=== PATIENT | male | born 1975 | race Caucasian/White ===

== ENCOUNTER 2019-11-01 00:36 | Inpatient (IN) | payer MEDICARE ==
[2019-11-01] MEDS ORDERED: cloNIDine 0.1 MG TAB ONE (01:08)
[2019-11-01] MEDS ORDERED: hydrALAZINE 20 MG/ML VIAL ONE (01:43)
--- NOTE | 2019-11-01 02:25 | PDOC.FPRHP ---
- History of Present Illness Chief Complaint: Fatigue and dizziness History of Present Illness: Mr. Christian is a 43yoM who presents as transfer from [place] for evaluation of severe hypertension and profound dizziness and fatigue. He states that he has a history of MS. His symptoms started last night at 8pm of increasing dizziness. He states that he feels that everything is spinning, it is not worsened by position. He denies nausea and vomiting. He states his stomach is a little upset. His mother has the flu and strep. He lives with his mom. He usually uses a cane , he was not able to walk today due to the dizziness. He has a history of vertigo and double vision with his MS. His last flare was 2 weeks ago and he states he did not go to the doctor and was managing it himself. He has been taking Ocrevis, infusion q 6 months however he missed his infusion in September. Just switched to Dr. Ramos ED Course: 1g Methylprednisolone - Allergies/Adverse Reactions Allergies Allergy/AdvReac Type Severity Reaction Status Date / Time No Known Drug Allergies Allergy Verified 11/01/19 04:25 - Home Medications Medication Instructions Recorded Confirmed Type Carvedilol [Coreg] 25 mg PO BID 11/01/19 11/01/[address] [Depakote] 500 mg PO BID 11/01/19 11/01/19 History Lisinopril 20 mg PO BID 11/01/19 11/01/19 History cloNIDine [Catapres] 0.1 mg PO BID 11/01/19 11/01/19 History - History PMHx: HTN - clonidine, carvedilol and lisinopril Seizure disorder - depakote (2 years) Last seizure yesterday. Multiple sclerosis PSHx: Appendectomy FHx: None Social: Rarely drinks alcohol. No tobacco or illicit drug use. - Review of Systems General: reports: fatigue. denies: fever/chills, weight/appetite/sleep changes , night sweats Eyes: denies: eye pain, vision changes ENT: denies: nasal congestion, rhinorrhea Respiratory: denies: cough, congestion, shortness of breath Cardiovascular: denies: chest pain, palpitation, edema Gastrointestinal: reports: nausea. denies: vomiting, diarrhea, constipation Skin: denies: rashes, lesions Musculoskeletal: denies: pain, tenderness, stiffness, swelling Neurological: reports: seizure (yesterday), weakness. denies: numbness, syncope - Vital signs Weight 105kg, Selected Entries 11/01/19 04:07 Temperature 97.7 F Pulse Rate 56 L Blood Pressure 140/94 H [Semi-Fowlers] Respiratory 16 Rate O2 Sat by Pulse 95 Oximetry Oxygen Delivery Room Air Method - Physical Exam Constitutional: NAD, awake, alert and oriented, well developed HEENT: normocephalic and atraumatic, PERRLA, EOMI, conjunctiva clear, grossly normal vision, grossly normal hearing, MMM Neck: supple, FROM, trachea midline Heart: RRR, normal S1/S2, no murmurs/rubs/gallops Lungs: CTAB, no respiratory distress, good air movement Abdomen: soft, non-tender, bowel sounds present Musculoskeletal: normal structure, normal tone Neurological: no focal deficit, CN II-XII intact, normal sensation -Neurological: Normal heel to mcintyre, finger to nose, no asterixis. Skin: no rash/lesions, good turgor Heme/Lymphatic: no unusual bruising or bleeding, no purpura Psychiatric: intact recent and remote memory -Psychiatric: Odd affect FMR H&P: A/P - Problem List (1) Multiple sclerosis exacerbation Current Visit: Yes Status: Acute Code(s): G35 - MULTIPLE SCLEROSIS (2) Hypertension Current Visit: Yes Status: Acute Code(s): I10 - ESSENTIAL (PRIMARY) HYPERTENSION (3) Seizure disorder Current Visit: Yes Status: Acute Code(s): G40.909 - EPILEPSY, UNSP, NOT INTRACTABLE, WITHOUT STATUS EPILEPTICUS - Plan Multiple sclerosis flare - Has history of MS - received 1g methylprednisolone in the ED. Will continue q 24 hours. Recommended for 3-7 days. - Ordered MRI for the AM. He was supposed to have one on 10/06 ordered by Richard, but did not get it. - Consider consulting neurology, or asking if they'd recommend outpatient f/u. Unknown seizure disorder - reports 2 year history, takes depakote. States he had a seizure yesterday. HTN - Elevated today - Patient on clonidine, lisinopril, carvedilol - Consider adjusting home medications for optimal treatment of BP Vertigo - He states that he commonly has vertigo and dizziness with his MS, uncertain if related to MS flare - MRI brain pending - Will schedule [facility] - Consider assessment for BPPV Multiple tattoos - RPR, HIV, and Hep panel pending JANE - Cr 1.36, GFR 57 - Uncertain of baseline FMR H&P: Upper Level - Pertinent history 43 year old male with PMH MS, HTN, seizure disorder and vertigo that presents with "profound fatigue" since 22:00 on 10/30. Patient states that he also has vertigo that has progressed over the last several hours and prompted his visit to the ED. He was transferred from [place] ED for treatment of MS flare. Patient was diagnosed with MS five years ago. He follows with Dr. Earl for MS and seizure disorder. He has been on a q6 month monoclonal antibody, but he missed his last dose in August. Patient states that steroids make him feel "ill". He states that he has been unable to ambulate due to dizziness and had to use a wheelchair to get to hospital in [place]. Patient uses a cane most of the time for balance assistance. He had an MRI scheduled for 10/[address] Earl, but it does not look like that scan was ever completed. Patient is currently going through a divorce and lives with his parents who he reports are unreliable and thus he has been unable to get to appointments. Patient also reports financial strain due to divorce. - Pertinent findings General: Alert and oriented x3. Resistant to opening eyes due to vertigo. HEENT: MMM, No pharyngeal erythema Card: Bradycardia, no murmurs Resp: CTA bilaterally, no acute respiratory distress Abdomen: Non-tender to palpation, no distention Neuro: CN II-XII intact, heel to mcintyre intact, finger to nose intact, no nystagmus, no asterixis Ext: No cyanosis or edema Skin: No rashes or lesions - Plan Date/Time: 11/01/19 0223 Lorene Tavarez, have evaluated this patient and agree with findings/plan as outlined by internet marketing manager resident. Pertinent changes/additions are listed here. Multiple sclerosis flare - Diagnosed 5 years ago - Follows with Dr. Earl - Flares associated with profound fatigue and extreme vertigo - Methylprednisolone 1g daily for 3-7 days (of note, patient reports feeling "ill" with prednisone; monitor); he tends to "self treat" flares at home - Dr. Earl had ordered MRI brain w/wo contrast for MS on 10/06, but patient did not get this done; will get today - Consider Neurology consult in AM - UDS negative - Serum drug screen pending Seizure disorder - Reports onset of seizures x2 years ago - Continue depakote - Reports last seizure yesterday, did not seek care HTN - Elevated today - Patient on clonidine, lisinopril, carvedilol - Consider adjusting home medications for optimal treatment of BP Vertigo - Uncertain if related to MS flare - MRI brain pending - Will schedule meclizine - Consider assessment for BPPV Multiple tattoos - Will get RPR, HIV, and Hep panel JANE - Cr 1.36, GFR 57 - Uncertain of baseline DVT PPX: SCD's Code status: Full Dispo: Obs
[2019-11-01] MEDS ORDERED: methylPREDNISolone Sod Succ 1 GM in Sodium Chloride 0.9% 250 ML 250 ML IVPB SCH (02:30)
[2019-11-01 03:19] LABS: Troponin I Less than 0.010 ng/mL (< 0.028)
[2019-11-01] MEDS ORDERED: Ondansetron ODT 4 MG TAB PO PRN (03:23)
[2019-11-01] MEDS ORDERED: Acetaminophen 325 MG TAB PO PRN (03:23)
[2019-11-01 04:38] VITALS: BMI 31.4
[2019-11-01 05:12] LABS: Syphilis Antibody Nonreactive (Nonreactive); Syphilis Antibody Index 0.09 S/CO (<1.00 Non-Reactive)
[2019-11-01 05:14] LABS: HBSAB Concentration 1.23 mIU/mL; HBSAg Index 0.18 S/CO (0-0.99); HIV (1/2) Antibody/Antigen Non-Reactive (NonReactive); HIV 1/2 INDEX 0.16 S/CO (<1.00); Hep B Core Total Ab Non-Reactive (NonReactive); Hep B Core Total Index 0.07 S/CO (0-0.79); Hep B Surf AB Non-Reactive (NonReactive); Hep B Surf Ag Non-Reactive S/CO (NonReactive); Hep C IgG Ab Non-Reactive (NonReactive)
[2019-11-01 06:53] LABS: Acetaminophen Less than 6.0 mcg/mL (10.0-30.0); Alcohol Less than 10 mg/dL (Less than 10); Salicylate Less than 8.0 mg/dL (15.0-30.0)
--- NOTE | 2019-11-01 07:36 | CT ---
PRELIMINARY REPORT/DIRECT RADIOLOGY/EMERGENCY AFTER HOURS PROCEDURE: EXAM: CT BRAIN WO CON HISTORY: M43, PATIENT COMPLAINS OF DIZZINESS AND HIGH BLOOD PRESSURE. COMPARISON: None FINDINGS: No focal parenchymal hypodensity to suggest acute ischemia. Johnson-white matter differentiation is pres erved. No intracranial hemorrhage. No hydrocephalus. Paranasal sinuses and mastoids are clear. Contents of the orbits are symmetric acro ss the midline. Calvarium is intact. No scalp swelling. IMPRESSION: No acute intracranial process. ELECTRONICALLY SIGNED BY: Velasquez Brown MD Nov 01, 2019 1:20:31 AM REGISTERED ASSOCIATE FINAL REPORT CT BRAIN WITHOUT CONTRAST: History: Dizziness and hypertension. Comparison: MRI brain 2005. Findings: No acute hemorrhage or infarct. Moderate periventricular and deep white matter microangiopathic morris es. Calvarium is intact. Paranasal sinuses and mastoids are clear. Impression: No acute intracranial abnormality. Transcribed Date/Time: 11/01/2019 8:02 AM
--- NOTE | 2019-11-01 08:12 | MRI ---
BRAIN MRI WITH AND WITHOUT CONTRAST: HISTORY: Multiple sclerosis. COMPARISON: 08/22/2006. FINDINGS: Gradient echo sequence: No hemorrhage. Calvarium: Appropriate T1 marrow signal intensity. Midline brain parenchyma: Unremarkable. Cerebrum:No parenchymal mass, mass effect or midline shift. Brain volume is age-appropriate. Cortical pearl-white matter differentiation is preserved. Interval development of T2 and FLAIR white matter hyperintensities which are perpendicular to the ventricular system and have an appearance suggesting Bejarano's fingers. No evidence of restricted diffusion or enhancement to suggest active demyelination. Ventricles: No evidence of hydrocephalus. Sinuses and mastoid air cells: Adequate aeration. Diffusion: Central arterial flow is maintained. Absent restricted diffusion. Postcontrast images: No pathologic enhancement of the brain parenchyma. IMPRESSION: Interval progression of T2 and FLAIR white matter hyperintensities which have an orientation suggesti ng Bejarano's fingers (demyelinating plaques from multiple sclerosis). There does not appear to be any evidence of enhancement or restricted diffusion to suggest active demyelination. Correlation with CSF acquisition if clinically warranted. Transcribed Date/Time: 11/01/2019 8:18 AM
[2019-11-01] MEDS: Carvedilol 25 MG TAB PO SCH ×2 (08:55→17:55)
[2019-11-01] MEDS: Divalproex Sodium DR 500 MG TAB PO SCH ×2 (08:55→21:16)
[2019-11-01] MEDS: cloNIDine 0.1 MG TAB PO SCH ×2 (08:55→17:55)
[2019-11-01] MEDS: Lisinopril 20 MG TAB PO SCH ×2 (08:56→17:55)
[2019-11-01] MEDS: Meclizine HCl 12.5 MG TAB PO SCH ×3 (08:56→21:16)
[2019-11-01] MEDS ORDERED: Hydrochlorothiazide 25 MG TAB PO SCH (11:00)
--- NOTE | 2019-11-01 11:55 | HP ---
I have examined the patient. I have discussed the case with Dr. Sepideh Redding and agree with her assessment and plan. HISTORY OF PRESENT ILLNESS: Briefly, Mr. Christian is a 43-year-old white male patient with a history of multiple sclerosis, who presents to an outside ER for profound dizziness and fatigue. He states that this is the usual symptoms he has when he is having a flare of his MS. He has recently moved to this area and is not established with a neurologist, although I believe he has seen Dr. Ramos once. In the event, Dr. Ramos was going to order an MRI, which has not yet been done, so we will proceed with this. PHYSICAL EXAMINATION: VITAL SIGNS: His blood pressure is 140/90, respirations 16, and O2 saturation on room air 95%. He is afebrile. EAR, NOSE, AND THROAT: No erythema or exudate. NECK: Supple. CARDIAC: Heart rhythm regular. No gallop or murmur. LUNGS: Clear. ABDOMEN: Flat, benign, and soft. NEUROLOGIC: No focal deficits. The patient does complain about being extremely "dizzy." LABORATORY DATA: Troponin less than 0.01. Serologies for hep B, C, and syphilis are all nonreactive revealing no exposure to immunity to these diseases. Toxicology negative. ASSESSMENT: Possible multiple sclerosis flare. PLAN: Begin high-dose intravenous methylprednisolone. Job ID: [id number]
[2019-11-01] MEDS ORDERED: methylPREDNISolone Sod Succ/PF 125 MG/2 ML VIAL IVPB SCH (12:00)
[2019-11-01] MEDS: methylPREDNISolone Sod Succ 1 GM in Sodium Chloride 0.9% 250 ML 250 ML IVPB SCH (12:58)
[2019-11-01 15:55] LABS: Amphetamine Not Detected (NotDetected); Barbiturates Screen Not Detected (NotDetected); Benzodiazepine Screen Not Detected (NotDetected); Cocaine Metabolite Screen Not Detected (NotDetected); Medtox Control Line Valid? VALID (VALID); Medtox Reader # READER 1; Methadone Not Detected (NotDetected); Methamphetamine Not Detected (NotDetected); Opiate Screen Not Detected (NotDetected); Oxycodone Screen Not Detected (NotDetected); Phencyclidine (PCP) Not Detected (NotDetected); THC/Cannabinoid Screen Not Detected (NotDetected); Tricyclic Screen Not Detected (NotDetected)
[2019-11-01] MEDS ORDERED: Magnevist 469MG/ML 20 ML VIAL ONE (16:31)
--- NOTE | 2019-11-02 06:20 | PDOC.FM ---
- Subjective Subjective: Pt denies any improvement in his dizziness or blurred vision, and reports being very ready to go home. No acute overnight events. Refused HTN medication changes yesterday. - Objective MAR Reviewed: Yes Vital Signs & Weight: Vital Signs (12 hours) Temp Pulse Resp BP Pulse Ox 11/02/19 05:30 97.6 F 74 16 105/57 L 94 L 11/01/19 23:39 97.7 F 64 14 134/98 H 94 L 11/01/19 19:16 97.6 F 57 L 16 172/114 H 97 Weight Weight 105.233 kg I&O: 10/31/19 11/01/19 11/02/19 06:59 06:59 06:59 Intake Total 200 970 Output Total 500 2000 Balance -300 -1030 Phys Exam - Physical Examination Constitutional: NAD HEENT: moist MMs, sclera anicteric Neck: supple, full ROM Respiratory: no wheezing, no rales, no rhonchi, clear to auscultation bilateral Cardiovascular: RRR, no significant murmur, no rub Gastrointestinal: soft, non-tender, no distention, positive bowel sounds Musculoskeletal: no edema, pulses present Neurological: moves all 4 limbs blurred vision. Psychiatric: A&O x 3 Skin: no rash, normal turgor Dx/Plan (1) Multiple sclerosis exacerbation Code(s): G35 - MULTIPLE SCLEROSIS Status: Acute (2) Hypertension Code(s): I10 - ESSENTIAL (PRIMARY) HYPERTENSION Status: Chronic (3) Seizure disorder Code(s): G40.909 - EPILEPSY, UNSP, NOT INTRACTABLE, WITHOUT STATUS EPILEPTICUS Status: Chronic (4) Relapsing remitting multiple sclerosis Code(s): G35 - MULTIPLE SCLEROSIS Status: Chronic - Plan Plan: Multiple sclerosis flare - Has history of MS - received 1g methylprednisolone in the ED. Will continue q 24 hours. Recommended for 3-7 days. Will transition to Po steroid taper today. - Dr. Ramos, neurologist consulted 11/01. Will f/u in outpt setting. Appreciate the consult and recommendations. - MRI: Progression of T2 and FLAIR white matter hyperintensities which have an orientation suggesting Bejarano's Fingers (demyelinating plaques) Relapsing Remitting MS - Will f/u out pt with Dr. Ramos and plan treatment goals/options. Asymptomatic Bradycardia, improved HR 40-50's while in hx first 24 hours. Overnight 60-70's. -asymptomatic, will monitor. Unknown seizure disorder - reports 2 year history, takes depakote. States he had a seizure yesterday. HTN - Elevated today - Patient on clonidine, lisinopril, carvedilol, anf furosemide. - Pt refused HCTZ or CCB for BP control. Stating they both caused side effects he is not willing to tolerate. Vertigo - He states that he commonly has vertigo and dizziness with his MS, uncertain if related to MS flare - MRI brain pending - Will schedule meclizine TID. Refused meclizine. Multiple tattoos - RPR, HIV, and Hep panel negative. JANE - Cr 1.36, GFR 57 - Uncertain of baseline Dispo: stable, inpatient likely >48 hr hx course for MS exacerbation.
[2019-11-02] MEDS: Divalproex Sodium DR 500 MG TAB PO SCH ×2 (08:14→20:23)
[2019-11-02] MEDS: cloNIDine 0.1 MG TAB PO SCH (08:15)
[2019-11-02] MEDS: Carvedilol 25 MG TAB PO SCH (08:15)
[2019-11-02] MEDS: Meclizine HCl 12.5 MG TAB PO SCH ×3 (08:15→20:24)
[2019-11-02] MEDS: Lisinopril 20 MG TAB PO SCH (08:15)
[2019-11-02] MEDS ORDERED: Hydrochlorothiazide 25 MG TAB PO SCH (09:00)
[2019-11-02] MEDS ORDERED: Furosemide 20 MG TAB PO SCH (09:00)
--- NOTE | 2019-11-02 11:00 | PRG ---
DATE OF SERVICE: 11/02/2019 ADDENDUM: This is an addendum to the note of Dr. Fariba Jane. I have examined Mr. Christian and then discussed the case with Dr. Fariba Jane. I agree with her assessment and plan. Mr. Christian feels worse this morning with profound "dizziness" which he really describes more as a vertiginous type feeling. He, however, does not have nystagmus. We are also awaiting input from Dr. Ramos. In the meantime, continue his high-dose intravenous methylprednisolone daily. Job ID: [id number]
[2019-11-02] MEDS: methylPREDNISolone Sod Succ 1 GM in Sodium Chloride 0.9% 250 ML 250 ML IVPB SCH (11:14)
--- NOTE | 2019-11-02 12:31 | MRI ---
MRI Lumbar Spine WO Con History: Lumbar radiculopathy Comparison: None. Findings: Aortic contour is nonaneurysmal. No hydronephrosis. Paraspinal musculature is symmetric. Evaluation for demyelinating plaques is limited without intravenous contrast. There is lumbarization of S1. Conus medullaris terminates near the inferior L1 endplate. Levels are as follows: L1/L2: Normal disc. No neural foraminal or spinal canal narrowing. L2/L3: Normal disc. Moderate hypertrophic facet arthropathy. No neural foraminal or spinal canal narr owing. L3/L4: Normal disc. Moderate hypertrophic facet arthropathy. No neural foraminal or spinal canal narr owing. L4/L5: Mild disc desiccation. Small circumferential disc bulge. Moderate left and mild right neural f oraminal narrowing with abutment of the left exiting and traversing nerve root. Left subforaminal annular fissure. L5/S1: Broad-based posterior disc bulge with central annular fissure. The spinal canal is narrowed to approximately 4 mm. The disc bulge causes moderate bilateral neural foraminal narrowing and abuts both S1 nerve roots. Impression: Moderate spondylosis as described greatest at L4/L5 and L5/S1.
[2019-11-02] MEDS ORDERED: Scopolamine 1.5 mg/72 hour Patch TD SCH (17:00)
[2019-11-02] MEDS ORDERED: predniSONE 20 MG TAB PO SCH (17:30)
[2019-11-02] MEDS ORDERED: Carvedilol 6.25 MG TAB PO SCH (21:00)
[2019-11-02] MEDS ORDERED: Carvedilol 25 MG TAB PO SCH (21:00)
--- NOTE | 2019-11-03 00:10 | CON ---
DATE OF CONSULTATION: 11/02/2019 CONSULTING PHYSICIAN: Hospitalist Service. HISTORY OF PRESENT ILLNESS: Mr. Christian was admitted with complaints of an acute dizziness thought to be secondary to his multiple sclerosis. His MRI of the brain with contrast did not show any acute inflammatory changes. He has also been complaining of sciatica type pain down the left leg. We had obtained an MRI of the lumbar spine, which shows a central bulge at the L5-S1 level. Since admission, he was started on his blood pressure medication. He has had a significant drop in his blood pressure from admission from systolics of over 190 now down to the levels of 90. He is complaining of being lightheaded and dizzy when he tries to get up and walk. He has no other focal complaints. He completed 2 days of IV Solu-Medrol. He is now currently on a prednisone taper. I would suggest, we decrease his blood pressure medication dosing and monitor his orthostatic blood pressures and make adjustments as necessary to get him back on his feet. Job ID: [id number]
--- NOTE | 2019-11-03 06:30 | PDOC.FM ---
- Subjective Subjective: Pt developed orthostatic hypotension yesterday. Holding BP medications Pt states he wants to go home today. Dizziness still present worse when sitting/standing or moving. - Objective MAR Reviewed: Yes Vital Signs & Weight: Vital Signs (12 hours) Temp Pulse Resp BP Pulse Ox 11/03/19 03:35 97.9 F 69 18 125/72 95 11/02/19 20:20 58 L 11/02/19 19:10 97.5 F L 62 15 121/77 100 Weight Weight 105.233 kg I&O: 11/01/19 11/02/19 11/03/19 06:59 06:59 06:59 Intake Total 200 970 650 Output Total 500 2000 950 Balance -300 -1030 -300 Result Diagrams: 11/03/19 06:45 Phys Exam - Physical Examination Constitutional: NAD HEENT: moist MMs, sclera anicteric Neck: no nodes, no JVD, full ROM Respiratory: no wheezing, no rales, no rhonchi, clear to auscultation bilateral Cardiovascular: RRR, no rub Gastrointestinal: soft, non-tender, no distention, positive bowel sounds Musculoskeletal: no edema, pulses present Neurological: non-focal, moves all 4 limbs Psychiatric: normal affect, A&O x 3 Skin: no rash, cap refill <2 seconds Dx/Plan (1) Multiple sclerosis exacerbation Code(s): G35 - MULTIPLE SCLEROSIS Status: Acute (2) Hypertension Code(s): I10 - ESSENTIAL (PRIMARY) HYPERTENSION Status: Chronic (3) Seizure disorder Code(s): G40.909 - EPILEPSY, UNSP, NOT INTRACTABLE, WITHOUT STATUS EPILEPTICUS Status: Chronic (4) Relapsing remitting multiple sclerosis Code(s): G35 - MULTIPLE SCLEROSIS Status: Chronic - Plan Plan: Multiple sclerosis flare - Has history of MS - received 1g methylprednisolone in the ED. Will continue q 24 hours. Recommended for 3-7 days. Transitioned to PO steroid taper 11/02. - Dr. Ramos, neurologist consulted 11/01. Will f/u in outpt setting. Appreciate the consult and recommendations. - MRI brain: Progression of T2 and FLAIR white matter hyperintensities which have an orientation suggesting Bejarano's Fingers (demyelinating plaques) - MRI L spine: spondylosis L4-L5, L5-S1. Relapsing Remitting MS - Will f/u out pt with Dr. Ramos and plan treatment goals/options. - Pt was been unable to afford Ocrelizumab for last infusion due in August Orthostatic Hypotension - positive orhtostatic BP readings. - Could be contributing to pt's dizziness - hold BP medications until orthostasis improved Asymptomatic Bradycardia, improved HR 40-50's while in hx first 24 hours. Overnight 60-70's. -asymptomatic, will monitor. Unknown seizure disorder - reports 2 year history, takes depakote. States he had a seizure yesterday. HTN - Elevated today - Patient on clonidine, lisinopril, carvedilol, anf furosemide. - Pt refused HCTZ or CCB for BP control. Stating they both caused side effects he is not willing to tolerate. Vertigo - He states that he commonly has vertigo and dizziness with his MS, uncertain if related to MS flare - Will schedule meclizine TID. Refused meclizine. Multiple tattoos - RPR, HIV, and Hep panel negative. JANE - Cr 1.36--> 1.71, GFR 57 - Uncertain of baseline, pt reports having CKD. Dispo: stable, inpatient likely >48 hr hx course for MS exacerbation.
[2019-11-03 07:21] LABS: Anion Gap 15 mmol/L (10-20); BUN (Urea Nitrogen) 26 mg/dL (8.9-20.6); Calc. Creatinine Clearance 84 mL/min (70-130); Calcium 9.6 mg/dL (7.8-10.44); Carbon Dioxide 24 mmol/L (22-29); Chloride 102 mmol/L (98-107); Estimated GFR-MDRD 44; Glucose 139 mg/dL (70-105); Phosphorus 3.6 mg/dL (2.3-4.7); Potassium 4.3 mmol/L (3.5-5.1); Sodium 137 mmol/L (136-145)
[2019-11-03] MEDS: Meclizine HCl 12.5 MG TAB PO SCH ×3 (08:59→20:04)
[2019-11-03] MEDS: predniSONE 20 MG TAB PO SCH (09:03)
[2019-11-03] MEDS: Divalproex Sodium DR 500 MG TAB PO SCH ×2 (09:03→22:07)
[2019-11-03] MEDS ORDERED: Sodium Chloride 0.9% 500 ML IV SCH ×3 (09:30→15:00)
--- NOTE | 2019-11-03 10:42 | CON ---
DATE OF CONSULTATION: 11/03/2019 REASON FOR CONSULTATION: Hypotension, labile hypertension. HISTORY OF PRESENT ILLNESS: Mr. Waqas Christian is a pleasant 43-year-old gentleman, admitted to the hospital with severe dizziness. Initially, it was thought that this was related to his multiple sclerosis, but later it was found he had the hypotension with severe orthostatic hypotension. The patient has a long history of severe hypertension, very difficult to control and not well controlled. The patient was tried on many medicines in the past. He had severe edema with amlodipine. He could not tolerate hydrochlorothiazide. His blood pressure when I saw in the office in September was usually 180 systolic or higher. At that time, the patient was taking lisinopril 20 mg a day, carvedilol 25 mg twice a day, and clonidine 0.1 mg twice a day. The patient was started on furosemide 10 mg a day. He initially says he was doing okay. His blood pressure was usually in the 160 systolic range, which was "good for him." However, the patient has been hypotensive during this admission. As noted, the patient had left ventricular hypertrophy by electrocardiogram. The patient had blood pressure medicines held last night and again this morning, his pressure is still approximately 100 systolic with orthostatic changes. No chest pain or pressure, but he feels extremely lightheaded. When he tries to get up, in fact he feels like he maybe even fainted briefly yesterday when he went to the bathroom. ALLERGIES: HE IS INTOLERANT TO AMLODIPINE AND INTOLERANT TO HYDROCHLOROTHIAZIDE. FAMILY HISTORY: Negative for heart disease at young age. SOCIAL HISTORY: He has quite a few social stressors. Currently, living with his mother. The patient also unable to work, walks with a cane. No tobacco or illicit drug use. PHYSICAL EXAMINATION: GENERAL: This is a pleasant 43-year-old man, in no distress. VITAL SIGNS: Blood pressure is still low 125/72 supine, 103/56 sitting, and 92/58 standing. NECK: Neck veins are normal. Carotid normal upstrokes. LUNGS: Clear. CARDIAC: Normal S1. Normal S2. ABDOMEN: Soft and nontender. EXTREMITIES: No clubbing or cyanosis. There is no edema. PERTINENT LABORATORY DATA: Creatinine has increased to 1.7. EKG, sinus rhythm. ASSESSMENT: 1. Labile hypertension with now hypotension, possibly related to low-dose diuretics or at least partially related to that. 2. Extremely cnjaeyvvg-[id number]-lgdlzvb blood pressure in the past. 3. Multiple sclerosis fortunately stable, does not appear to be the source of current symptoms. PLAN: 1. We will give him normal saline 500 mL. 2. All blood pressure medicines are on hold currently. We will probably need to avoid diuretics in the future. 3. We will follow with you. Job ID: [id number]
--- NOTE | 2019-11-03 11:19 | PRG ---
DATE OF SERVICE: 11/03/2019 I have examined the patient and discussed the case with Dr. Fariba Jane. I agree with her assessment and plan. Mr. Christian is sitting in bed very quietly and in no acute distress. He was seen in consultation by Dr. Jeffery, given that this is the only physician he has seen in this area and Dr. Jeffery is treating his labile hypertension. Mr. Christian has had some orthostatic and low blood pressure readings and his blood pressure medications have been held. Dr. Jeffery's impression was that he had labile hypertension with now hypotension, which we were addressing. He has had extremely difficult to control blood pressure in the past according to Dr. Jeffery. He gave him a bolus of saline and as we were doing held his blood pressure medications. As soon as Mr. Christian is normotensive, we can likely discharge him either later this afternoon or tomorrow. He is also at this time getting an echocardiogram with results pending. Job ID: [id number]
[2019-11-03] MEDS ORDERED: Sodium Chloride 0.9% 1,000 ML IV SCH (15:00)
--- NOTE | 2019-11-04 06:27 | PDOC.FM ---
- Subjective Subjective: Pt sitting up in bed playing on phone when I entered the room. States his dizziness is still present, but that BP was elevated this AM. Pt eager to discharge home today. PT does not have PCP, but states he would like to f/u in [place] for PCP. - Objective MAR Reviewed: Yes Vital Signs & Weight: Vital Signs (12 hours) Temp Pulse Resp BP BP BP Pulse Ox 11/04/19 03:34 97.9 F 67 18 158/95 H 160/101 H 157/86 H 94 L 11/03/19 21:25 97.7 F 79 20 140/91 H 98 11/03/19 19:52 97.6 F 75 16 143/80 H 100 Weight Weight 105.233 kg I&O: 11/02/19 11/03/19 11/04/19 06:59 06:59 06:59 Intake Total 872 291 9789 Output Total 2000 950 1200 Balance -1030 -300 525 Result Diagrams: 11/03/19 06:45 Phys Exam - Physical Examination Constitutional: NAD HEENT: moist MMs, sclera anicteric Neck: no nodes, full ROM Respiratory: no wheezing, no rales, no rhonchi, clear to auscultation bilateral Cardiovascular: RRR, no rub Gastrointestinal: soft, non-tender Musculoskeletal: no edema, pulses present Neurological: non-focal, moves all 4 limbs Psychiatric: normal affect, A&O x 3 Skin: no rash, cap refill <2 seconds Dx/Plan (1) Multiple sclerosis exacerbation Code(s): G35 - MULTIPLE SCLEROSIS Status: Acute (2) Hypertension Code(s): I10 - ESSENTIAL (PRIMARY) HYPERTENSION Status: Chronic (3) Seizure disorder Code(s): G40.909 - EPILEPSY, UNSP, NOT INTRACTABLE, WITHOUT STATUS EPILEPTICUS Status: Chronic (4) Relapsing remitting multiple sclerosis Code(s): G35 - MULTIPLE SCLEROSIS Status: Chronic - Plan Plan: Multiple sclerosis flare - Has history of MS - received 1g methylprednisolone in the ED. Will continue q 24 hours. Recommended for 3-7 days. Transitioned to PO steroid taper 11/02. - Dr. Ramos, neurologist consulted 11/01. Will f/u in outpt setting. Appreciate the consult and recommendations. - MRI brain: Progression of T2 and FLAIR white matter hyperintensities which have an orientation suggesting Bejarano's Fingers (demyelinating plaques) - MRI L spine: spondylosis L4-L5, L5-S1. Relapsing Remitting MS - Will f/u out pt with Dr. Ramos and plan treatment goals/options. - Pt was been unable to afford Ocrelizumab for last infusion due in August Orthostatic Hypotension, resolved - positive orhtostatic BP readings. - Could be contributing to pt's dizziness - hold BP medications until orthostasis improved - Pt to f/u and establish with PCP in [place] out pt for BP management. Asymptomatic Bradycardia, improved HR 40-50's while in hx first 24 hours. Overnight 60-70's. -asymptomatic, will monitor. Unknown seizure disorder - reports 2 year history, takes depakote. States he had a seizure yesterday. HTN - Elevated today - Patient on clonidine, lisinopril, carvedilol, anf furosemide. - Pt refused HCTZ or CCB for BP control. Stating they both caused side effects he is not willing to tolerate. Vertigo - He states that he commonly has vertigo and dizziness with his MS, uncertain if related to MS flare - Will schedule meclizine TID. Refused meclizine. Multiple tattoos - RPR, HIV, and Hep panel negative. JANE - Cr 1.36--> 1.71, GFR 57 - Uncertain of baseline, pt reports having CKD. - Will require more f/u outpt with PCP Dispo: stable, inpatient likely >48 hr hx course for MS exacerbation.
[2019-11-04] MEDS ORDERED: Sodium Chloride 0.9% 10 ML ONE (09:20)
[2019-11-04] MEDS: Divalproex Sodium DR 500 MG TAB PO SCH (09:36)
[2019-11-04] MEDS: Meclizine HCl 12.5 MG TAB PO SCH (09:37)
[2019-11-04] MEDS: predniSONE 20 MG TAB PO SCH (09:37)
--- NOTE | 2019-11-04 10:49 | PRG ---
DATE OF SERVICE: 11/04/2019 SUBJECTIVE: Mr. Christian is a feeling fine today. No complaints. OBJECTIVE: VITAL SIGNS: His blood pressure is high at 170/99, pulse 66 and it is regular. LUNGS: Clear. CARDIAC: Normal S1, normal S2. ABDOMEN: Soft, nontender. EXTREMITIES: No edema. IMAGING STUDIES: Echocardiogram shows moderate to severe left ventricular hypertrophy with ejection fraction of 65% to 70%. ASSESSMENT: 1. Long-standing hypertensive heart disease. 2. Hypotension, probably related to volume depletion in the setting of left ventricular hypertrophy to level of the blood pressure. PLAN: 1. He is off diuretics. 2. He received a L of fluid total yesterday. 3. Resume lisinopril. 4. Check basic met today. 5. Resume carvedilol. 6. Resume clonidine tonight, possibly home this afternoon if he is doing well and the kidney function is stable. Need to make sure the kidney function is improved. Job ID: [id number]
[2019-11-04 11:53] LABS: Anion Gap 14 mmol/L (10-20); BUN (Urea Nitrogen) 30 mg/dL (8.9-20.6); Calc. Creatinine Clearance 105 mL/min (70-130); Calcium 9.1 mg/dL (7.8-10.44); Carbon Dioxide 25 mmol/L (22-29); Chloride 105 mmol/L (98-107); Estimated GFR-MDRD 57; Glucose 122 mg/dL (70-105); Potassium 4.1 mmol/L (3.5-5.1); Sodium 140 mmol/L (136-145)
--- NOTE | 2019-11-04 13:40 | PRG ---
DATE OF SERVICE: 11/04/2019 ADDENDUM: Please add this as an addendum to the note of Dr. Fariba Jnae. I have examined the patient and discussed the case with Dr. Jane. I agree with her assessment and plan. Current blood pressure is 160/95 and is normally quite labile. We will start him back on his AMOL inhibitor, but hold his other medications given the lability of his blood pressure. We have instructed him to please get PCP EVONNE to continue to monitor and adjust medications as needed. In the event, Mr. Christian looks and feels much better this morning and will be discharged. Job ID: [id number]
[2019-11-04 15:56] VITALS: TEMP 98.5
[2019-11-04] MEDS ORDERED: Carvedilol 6.25 MG TAB PO SCH (17:00)
[2019-11-04 17:25] VITALS: BP 180/116
[2019-11-04] MEDS ORDERED: cloNIDine 0.1 MG TAB PO SCH (21:00)
--- NOTE | 2019-11-05 03:40 | DIS ---
DATE OF ADMISSION: 11/01/2019 DATE OF DISCHARGE: 11/04/2019 RESIDENT: Fariba Jane DO ADMITTING ATTENDING: Ana Maldonado MD DISCHARGE ATTENDING: Henry Kirkland MD. CONSULTS: 1. Neurology, Dr. Ramos. 2. Cardiology, Dr. Jeffery, in walking program. PROCEDURES: 1. Echocardiogram, which showed normal left ventricular size and EF of 65% to 70%. [id number] left ventricular hypertrophy. 2. Lumbar spine MRI, moderate spondylosis as described greatest at L4-5 and L5-S1. 3. Brain MRI, interval progression of T2 and FLAIR white matter hyperintensities was having orientation suggesting demyelinating plaques and multiple sclerosis. There does not appear to be any evidence of enhancement or restricted diffusion to suggest any active demyelination. 4. Brain CT, which was negative for any acute intracranial hemorrhage or process. DIAGNOSES: 1. Multiple sclerosis flare. 2. Relapsing remitting multiple sclerosis. 3. Orthostatic hypotension with labile blood pressures. 4. Asymptomatic bradycardia. 5. Seizure disorder. 6. Hypertension. 7. Vertigo. 8. Acute kidney injury on possible chronic kidney disease. The patient is unsure of diagnosis, but states he thinks he has a history of chronic kidney disease. DISCHARGE MEDICATIONS: 1. Depakote 500 mg p.o. b.i.d. 2. Lisinopril 20 mg p.o. daily. 3. Prednisone taper 40 mg p.o. for two days and then taper to 20 mg p.o. for two days and discontinue the prednisone.DISCONTINUED MEDICATIONS. 4. Coreg 12.5 mg p.o. b.i.d. 5. Clonidine 0.1 p.o. b.i.d. as the patient's blood pressures were very low and he had orthostatic hypotension. His blood pressure was labile though and was elevated on and off throughout the hospital course . Recommended that he follow up with primary care to have this recheck and possibly restart home blood pressure regimen outpatient. HISTORY OF PRESENT ILLNESS/HOSPITAL COURSE: Mr. Christian is a 43-year-old male with a history of relapsing-remitting MS, was admitted because of severe dizziness and multiple sclerosis flare. Dr. Ramos was consulted with Neurology, who recommended 1 g methylprednisolone daily. He received this for a few days and then was switched to oral prednisone taper starting at 60, then 40, then 20 for 2 days each. The patient's dizziness did not seem to improve much throughout the entire hospital course, but he did say that this is a chronic problem and he is dizzy everyday in his life. The patient repeatedly refused any medication that I offered him. Initially, he was very hypertensive with systolics as high as 180. I recommended that we start hydrochlorothiazide in addition to his lisinopril and Coreg calcium channel blockers and other medications, all of which he refused. Subsequently, he said that he was on furosemide 20 mg p.o. nightly as outpatient and that has not been restarted and the patient has developed orthostatic hypotension, which worsened his dizziness. Dr. Ramos then consulted Dr. Jeffery with Cardiology, who ordered an echo, which showed normal function of the heart with an EF of 55% to 70%. The patient's blood pressure has improved after he was given IV fluids and blood pressure medication pill. His blood pressure was high on day of discharge, but on lisinopril as his blood pressures are very labile. The patient is new to [facility], lives in [place], would like to follow up with PCP in [place]. He was told that if he was unable to establish, we would be happy to see him at [facility]. He understood and also understood that he needed a followup within a few days to check his blood pressure and get him on a better regimen outpatient. His dizziness did not improve much and this is thought to be his chronic problem and maybe not even due to MS flare. Dr. Ramos said that he would see him as an outpatient and try to establish his MS regiment. as he missed his last dose of infusion. DISPOSITION: Stable upon discharge. DISCHARGE INSTRUCTIONS: Location: To home. Diet: Heart healthy. Activity: As tolerated. Followup: Follow up with primary care in about 3 days for recheck of blood pressure and to restart any blood pressure medications if blood pressure is elevated with Dr. Ramos in [address] Jeffery in 2 weeks. Job ID: [id number]
[2019-11-05] MEDS ORDERED: predniSONE 20 MG TAB PO SCH (09:00)
[2019-11-05] MEDS ORDERED: Lisinopril 20 MG TAB PO SCH (09:00)
[2019-11-07] MEDS ORDERED: predniSONE 20 MG TAB PO SCH (09:00)
== END 2019-11-04 16:40 | disposition home or self-care (01) | DRG 312 ==
LOC: ERS 00:36 → 2SW 02:25 → OBSVTOIN 14:49 → 2NO 11-03 21:39
PROVIDERS: ADMIT Family Medicine; ATTEND Family Medicine
DX: I95.1 Orthostatic hypotension (principal); N17.9 Acute kidney failure, unspecified; G35 Multiple sclerosis; I10 Essential (primary) hypertension; Z79.899 Other long term (current) drug therapy; Z88.5 Allergy status to narcotic agent; G40.909 Epilepsy, unspecified, not intractable, without status epilepticus; Z90.49 Acquired absence of other specified parts of digestive tract; L81.8 Other specified disorders of pigmentation; I95.2 Hypotension due to drugs; T50.2X5A Adverse effect of carbonic-anhydrase inhibitors, benzothiadiazides and other diuretics, initial encounter
CPT/HCPCS: 36415; 70450; 70553; 72148; 80048; 80306; 80307; 83735; 84100; 84484; 86704; 86706; 86780; 86803; 87340; 87389; 93306; 96374; A9579; J0360; J2930; J7050; J7512